=== PATIENT | female | born 1960 | race Caucasian/White ===

== ENCOUNTER → 2024-10-12 11:51 | Outpatient (CLI) | payer BC, SELFPAY ==
[2024-10-12 13:04] LABS: COVID-19 CEPHEID 4-PLEX PCR Negative (Negative); Influenza A - CEPHEID Flu A NEGATIVE (NEGATIVE); Influenza B - CEPHEID Flu B NEGATIVE (NEGATIVE); Respiratory Syncytial Virus Negative (Negative)
== END ==
PROVIDERS: Visit Provider Physician Assistant
DX: R05.1 Acute cough (principal)
CPT/HCPCS: 0241U

== ENCOUNTER → 2024-10-12 12:32 | Outpatient (CLI) | payer BC, SELFPAY ==
--- NOTE | 2024-10-12 12:35 | DI.RAD.S_ITS ---
PROCEDURE: XR CHEST 2V INDICATIONS: cough/wheezing/fever x 4 days, past smoker TECHNIQUE: 2 views of the chest were acquired. COMPARISON: None. FINDINGS: Surgical changes and devices: None. Lungs and pleura: Multifocal opacification of the anterior posterior segments of the lower lobes. No pleural effusions or pneumothorax. Mediastinum: Aortic arch calcifications. Tortuous contour of the aorta. Mediastinal contours are normal. Heart size is normal. Bones and chest wall: No suspicious bony abnormalities. Soft tissues appear unremarkable. IMPRESSION: Bibasilar pneumonia. Consider aspiration as a possible etiology. Dictated by: Osorio Martin M.D. on 10/12/2024 at 13:43 Approved by: Osorio Martin M.D. on 10/12/2024 at 13:44
== END ==
PROVIDERS: Referring Provider Physician Assistant; Visit Provider Physician Assistant
DX: J18.9 Pneumonia, unspecified organism (principal); J06.9 Acute upper respiratory infection, unspecified; R05.1 Acute cough
CPT/HCPCS: 0241U; 71046

== ENCOUNTER → 2025-08-23 12:44 | Outpatient (CLI) | payer OTHER, SELFPAY ==
[2025-08-23 13:08] LABS: Add Manual Diff / Slide Review NO; Hematocrit 42.6 % (36-46); Hemoglobin 14.3 g/dL (12.0-16.0); Lymphocytes Absolute Auto 1400 /uL (1100-4500); Mean Corpuscular HGB Conc 33.6 % (30-36); Mean Corpuscular Hemoglobin 29.3 PG (26-34); Mean Corpuscular Volume 87.1 fL (80-100); Platelet Count 263 X10^3/uL (150-400)
[2025-08-23 13:15] LABS: Hemoglobin A1C% w Est Avg Glu 5.6 % (4.0-6.0)
[2025-08-23 13:27] LABS: Alanine Aminotransferase 24 IU/L (<35); Albumin 4.5 g/dL (3.5-5.0); Albumin Globulin Ratio 1.6 (1.0-2.8); Alkaline Phosphatase 68 U/L (38-126); Blood Urea Nitrogen 15 mg/dL (7-17); Calcium 9.8 mg/dL (8.4-10.2); Carbon Dioxide 22 mmol/L (22-32); Chloride 107 mmol/L (98-107); Cholesterol 220 mg/dL (140-199); Estimated Glomerular Filt Rate > 60 mL/min (>60); Globulin 2.8 g/dL (1.7-4.1); Glucose 112 mg/dL (70-99); HDL Cholesterol 65 mg/dL (40-60); HEMOLYSIS < 15 (0-50); Potassium 4.1 mmol/L (3.4-5.1); Sodium 140 mmol/L (137-145); Total Protein 7.3 g/dL (6.3-8.2); Triglycerides 196 mg/dL (35-150)
[2025-08-23 13:58] LABS: Thyroid Stimulating Hormone 1.26 uIU/mL (0.47-4.68)
== END ==
PROVIDERS: PCP Student in an Organized Health Care Education/Training Program; Referring Provider Student in an Organized Health Care Education/Training Program; Visit Provider Student in an Organized Health Care Education/Training Program
DX: R63.5 Abnormal weight gain (principal)
CPT/HCPCS: 36415; 80053; 80061; 83036; 84443; 85025

== ENCOUNTER → 2025-08-31 12:55 | Outpatient (CLI) | payer OTHER, SELFPAY ==
--- NOTE | 2025-08-31 12:57 | DI.CT.S_ITS ---
PROCEDURE: CT LUNG LOW DOSE SCREENING INDICATIONS: History of tobacco use TECHNIQUE: Noncontrast 2.0-2.5 mm thick sections acquired from the pulmonary apices to the posterior costophrenic angles. 7 mm thick axial MIP, and 5 mm coronal and sagittal reformats were then acquired. For radiation dose reduction, the following was used: automated exposure control, adjustment of mA and/or kV according to patient size. COMPARISON: None. FINDINGS: Image quality: Diagnostic. Lower Neck: No enlarged lymph nodes. Thyroid: No thyroid nodules which require sonographic follow up, per consensus guidelines. Axillae: No enlarged lymph nodes. Chest Wall: Left periscapular lipoma measuring 8.5 x 5.7 cm Bones: Unremarkable. Lungs and Pleura: Trace left pleural effusion versus pleural thickening. No consolidation or significant focal lung parenchymal lesion seen. Heart: Heart size is normal. No pericardial effusion. Thoracic Vessels: The aorta and pulmonary arteries demonstrate normal size. Mediastinum and Nila: No enlarged lymph nodes. Esophagus: No wall thickening. No hiatal hernia. Upper Abdomen: Visualized upper abdomen solid organs and bowel loops appear normal. IMPRESSION: No suspicious pulmonary nodules. LUNG-RADS 1; continued annual screening, if eligible. Clinically Significant Non-pulmonary Findings: None. Dictated by: Fan Mendoza M.D. on 08/31/2025 at 14:53 Approved by: Fan Mendoza M.D. on 08/31/2025 at 14:59
== END ==
PROVIDERS: PCP Student in an Organized Health Care Education/Training Program; Referring Provider Student in an Organized Health Care Education/Training Program; Visit Provider Student in an Organized Health Care Education/Training Program
DX: Z12.2 Encounter for screening for malignant neoplasm of respiratory organs (principal); Z87.891 Personal history of nicotine dependence
CPT/HCPCS: 71271

== ENCOUNTER 2025-10-11 11:27 | Inpatient (IN) | payer OTHER, SELFPAY ==
[2025-10-11] VITALS (20 sets, daily range): BP systolic 113–190; BP diastolic 57–123; PULSE 70–135; RESP 18–36; TEMP 37–37.7; O2SAT 92–98; BMI 36.5
--- NOTE | 2025-10-11 11:53 | DI.RAD.S_ITS ---
PROCEDURE: XR CHEST 1V INDICATIONS: Shortness of breath TECHNIQUE: One view of the chest was acquired. COMPARISON: [facility], CT, CT LUNG LOW DOSE SCREENING, 08/31/2025, 13:17. [facility], CR, XR CHEST 2V, 10/12/2024, 12:49. FINDINGS: Surgical changes and devices: None. Lungs and pleura: Mild horizontal atelectasis or scarring at the left lung base. Mild reticulonodular interstitial prominence. No pleural effusions or pneumothorax. Mediastinum: Tortuous aorta. Heart is within normal limits in size. Bones and chest wall: No suspicious bony lesions. Overlying soft tissues appear unremarkable. IMPRESSION: Mild interstitial prominence may indicate atelectasis versus mild edema or infection with an atypical or viral pneumonia. Approved by: Ruel Valdez M.D. on 10/11/2025 at 13:22
--- NOTE | 2025-10-11 11:53 | EKG_ITS ---
[facility] [address] [place] [address] Test Date: 2025-10-11 Pat Name: Brittany Betanocurt Department: [facility] Room: Gender: Female Cutter Machine: SWEETIE : 1960 Requested By: Order Number: [id number] Reading MD: Abner Lee MD Measurements Intervals [place] Rate: 122 P: OR: QRS: 84 QRSD: 112 T: 236 QT: 354 QTc: 504 Interpretive Statements Atrial fibrillation with rapid ventricular response Anterior infarct , age undetermined ST & T wave abnormality, consider inferior ischemia NO PRIOR TRACING Electronically Signed On 10-11-2025 17:18:37 PST by Abner Lee MD
[2025-10-11 12:15] LABS: Add Manual Diff / Slide Review NO; Hematocrit 41.0 % (36-46); Hemoglobin 13.9 g/dL (12.0-16.0); Lymphocytes Absolute Auto 1100 /uL (1100-4500); Mean Corpuscular HGB Conc 33.8 % (30-36); Mean Corpuscular Hemoglobin 29.2 PG (26-34); Mean Corpuscular Volume 86.3 fL (80-100); Platelet Count 237 X10^3/uL (150-400)
[2025-10-11 12:25] LABS: INR 1.1 (0.9-1.3); Prothrombin Time 12.9 SECONDS (9.4-12.5)
[2025-10-11 12:29] LABS: Alanine Aminotransferase 42 IU/L (<35); Albumin 4.5 g/dL (3.5-5.0); Albumin Globulin Ratio 1.5 (1.0-2.8); Alkaline Phosphatase 60 U/L (38-126); Blood Urea Nitrogen 14 mg/dL (7-17); Calcium 9.5 mg/dL (8.4-10.2); Carbon Dioxide 25 mmol/L (22-32); Chloride 109 mmol/L (98-107); Estimated Glomerular Filt Rate > 60 mL/min (>60); Globulin 3.0 g/dL (1.7-4.1); Glucose 124 mg/dL (70-99); HEMOLYSIS < 15 (0-50); Potassium 3.5 mmol/L (3.4-5.1); Sodium 145 mmol/L (137-145); Total Protein 7.5 g/dL (6.3-8.2)
[2025-10-11 12:30] LABS: Lactate (Lactic Acid) 2.9 mmol/L (0.7-2.1)
[2025-10-11 12:41] LABS: NT-proBNP (BNP-Adult 18+) 3370 pg/mL (<125); Troponin I 0.012 ng/mL (0.01-0.034)
--- NOTE | 2025-10-11 12:51 | PC.NURSE ---
Patient has been out of her blood pressure medication for about a week. She has been short of breathe for a couple weeks and was a seen a week ago and placed on an inhaler, she think spiriva. She states that her breathing was helped a little bit with the inhaler but not much. She is having difficulty speaking in full sentences and become tachypneac in the 30s while trying to speak. Once she stops talking her rate settles in the high teens. She denies any cardiac hx. she has not been able to sleep for a few days and does not feel well. She can't lay flat without trouble breathing.
[2025-10-11] MEDS: FUROSEMIDE 40 MG/4 ML VIAL IV (13:20)
--- NOTE | 2025-10-11 13:44 | EKG_ITS ---
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
[2025-10-11 13:46] LABS: Reflexed Lactate in 2 Hours Y
--- NOTE | 2025-10-11 13:56 | PC.NURSE ---
pt up to use the bathroom. patient and educated on and offered a purewic and then declined purewic.
[2025-10-11 14:23] LABS: Lactate 2HR (Lactic Acid Rflx) 2.6 mmol/L (0.7-2.1)
--- NOTE | 2025-10-11 14:26 | ED_ITS ---
HPI - SOB/Dyspnea General Chief Complaint: Shortness of Breath/Dyspnea Stated Complaint: SOB , hasn't slept in 2 days Time Seen by Provider: 10/11/25 11:39 Source: patient Mode of arrival: Ambulatory Limitations: no limitations History of Present Illness HPI Narrative: 65-year-old female history of hypertension, COPD who presents with a complaint shortness of breath. Patient has had symptoms on and off for several weeks. Patient did note palpitations last night. Patient states recently thought she was having issues with COPD but has been persistent did not respond to albuterol. She does have little bit of chest pressure. She had had shortness of breath. No fevers, no cold cough or congestion. No nausea or vomiting. No syncope. No new swelling in extremities. No other GI or urinary symptoms. Patient states she takes lisinopril but has not taken at about a week. She has not taken any aspirin or anticoagulants. She had has been told she had any cardiac arrhythmias. Has a remote history of ankle surgery for bone spurs. No known drug allergies. Quit smoking 2 years ago, quit alcohol at the same time, occasional audible no other recreational drugs. Dr. Guthrie is her primary care physician. Related Data Previous Rx's ?Medication ?Instructions ?Recorded albuterol sulfate 90 mcg/actuation 2 puff inhalation Q 6H PRN 08/23/25 aerosol inhaler shortness of breath or wheez ing #8.5 grams lisinopril 10 mg tablet 10 mg PO DAILY #90 tabs 08/02 01/23 meloxicam 15 mg tablet 15 mg PO DAILY #30 tabs 08/02 01/23 semaglutide (weight loss) 0.25 0.25 mg (0.5 mL) SUBCUT QWEEK #2 mL 09/13/25 mg/0.5 mL subcutaneous pen injector ondansetron 4 mg disintegrating 4 mg PO Q8H PRN nausea and 09/17/25 tablet vomiting #14 tabs semaglutide 0.25 mg or 0.5 mg (2 0.5 mg (0.736 mL) SUB CUT QWEEK #3 09/17/25 mg/3 mL) subcutaneous pen injector mL tiotropium bromide 18 mcg capsule 1 cap inhalation JD LY #60 caps 10/01/25 with inhalation device (Spiriva with HandiHaler) Allergies Allergy/AdvReac Type Severity Reaction Status Date / Time No Known Drug Allergies Allergy Verified 10/11/25 10:44 Review of Systems Review of Systems ROS Unobtainable: All systems reviewed & are unremarkable except as noted in HPI and below Patient History Medical History Osteoarthritis of right knee Knee pain Social History Smoking Status: Former smoker Smoking Status: Former smoker Exam Narrative Exam Narrative: GENERAL: Alert and oriented x three, female in mild distress. HEENT: Head normocephalic, atraumatic, EOMI, pupils reactive, face symmetric, moist mucous membranes NECK: Supple, full range of motion CARDIOVASCULAR: Tachycardic and irregularly irregular rate and rhythm without murmurs, rubs or gallops. No JVD appreciated. Trace edema bilateral ankles. RESPIRATORY: Breath sounds equal bilaterally, no wheezes rales or rhonchi. Mild tachypnea, no accessory muscle use. Speaks in full sentences. ABDOMEN: Soft, nontender. Normoactive bowel sounds all 4 quadrants. No guarding or rebound, rigidity, no mass : No CVA tenderness EXTREMITIES: Normal range of motion, no clubbing or edema. Neurovascularly intact NEUROLOGICAL: Cranial nerves II through XII grossly intact. Moving all extremities SKIN: Warm, dry, no petechiae, no rashes or lesions. Initial Vital Signs Initial Vital Signs: Vital Signs Temperature 98.6 F 10/11/25 11:47 Pulse Rate 70 10/11/25 11:47 Respiratory Rate 24 10/11/25 11:47 Blood Pressure 141/99 H 10/11/25 11:47 Pulse Oximetry 94 10/11/25 11:47 Oxygen Delivery Method Room Air 10/11/25 11:47 Course Orders Ordered: ED Orders 10/11/25 11:53 XR chest 1V Stat EKG-12 Lead Stat Measure peak expiratory flow STAT RT Consult Eval and Treat STAT 10/11/25 12:05 Complete Blood Count AUTO DIFF Stat Comprehensive Metabolic Panel Stat Lactate (Lactic Acid) Stat NT-proBNP (BNP-Adult 18+) Stat Prothrombin Time INR Stat Troponin I Stat 10/11/25 13:44 EKG-12 Lead Stat Diltiazem HCl 125 mg/ Sodium (Chloride) 125 mls @ 5 mls/hr IV TITRATE CHRISTY; Protocol Last Titration: 10/11/25 14:08 Dose: 10 mg/hr, 10 mls/hr Documented By: Admin: 10/11/25 13:45 Dose: 5 mg/hr, 5 mls/hr Documented By: JAVIER Discontinued Medications Diltiazem HCl (Diltiazem 25 Mg/5 Ml Sdv) 10 mg IV NOW ONE Stop: 10/11/25 13:12 Last Admin: 10/11/25 13:18 Dose: 10 mg Documented By: JAVIER Furosemide (Furosemide 40 Mg/4 Ml Vial) 40 mg IV NOW ONE Stop: 10/11/25 13:12 Last Admin: 10/11/25 13:20 Dose: 40 mg Documented By: JAVIER Vital Signs Vital signs: Vital Signs - 8 hr 10/11/25 11:47 10/11/25 12:37 10/11/25 12:51 Temperature 98.6 F Pulse Rate 70 135 H Respiratory Rate 24 29 H Blood Pressure 141/99 H 175/117 H Pulse Oximetry 94 98 Oxygen Delivery Method Room Air 10/11/25 13:00 10/11/25 13:15 10/11/25 13:15 Temperature Pulse Rate 122 H 120 H Respiratory Rate 27 H 21 Blood Pressure 144/108 H Pulse Oximetry 97 97 Oxygen Delivery Method 10/11/25 13:18 10/11/25 13:30 10/11/25 13:31 Temperature Pulse Rate 130 H 117 H Respiratory Rate 30 H Blood Pressure 144/108 H 173/96 H Pulse Oximetry 96 Oxygen Delivery Method 10/11/25 13:31 10/11/25 13:59 10/11/25 13:59 Temperature Pulse Rate 122 H 123 H Respiratory Rate 35 H 26 H Blood Pressure 177/118 H Pulse Oximetry 96 96 Oxygen Delivery Method 10/11/25 14:00 10/11/25 14:00 10/11/25 14:12 Temperature Pulse Rate 120 H Respiratory Rate 27 H Blood Pressure 190/113 H 190/123 H Pulse Oximetry 97 Oxygen Delivery Method 10/11/25 14:12 10/11/25 14:30 Temperature Pulse Rate 122 H 120 H Respiratory Rate 26 H 36 H Blood Pressure Pulse Oximetry 97 96 Oxygen Delivery Method MDM - SOB/Dyspnea Lab Data 10/11/25 12:05 10/11/25 12:05 Labs: Lab Results 10/11/25 10/11/25 Range/Units 12:05 14:00 WBC 6.7 (4.5-11.0) X10^3/uL RBC 4.74 (4.0-5.2) X10^6/uL Hgb 13.9 (12.0-16.0) g/dL Hct 41.0 (36-46) % MCV 86.3 (80-100) fL MCH 29.2 (26-34) PG MCHC 33.8 (30-36) % RDW 16.0 H (11.6-14.8) % Plt Count 237 (150-400) X10^3/uL Neut % (Auto) 74.0 (50-75) % Lymph % (Auto) 17.1 L (25-40) % Major % (Auto) 7.0 (3-14) % Eos % (Auto) 0.8 L (2-4) % Baso % (Auto) 1.1 (0-2) % Neut # (Auto) 5000 (8724-1295) /uL Lymph # (Auto) 1100 (8524-3723) /uL Major # (Auto) 500 (0-900) /uL Eos # (Auto) 100 (0-450) /uL Baso # (Auto) 100 (0-100) /uL PT 12.9 H (9.4-12.5) SECONDS INR 1.1 (0.9-1.3) Sodium 145 (137-145) mmol/L Potassium 3.5 (3.4-5.1) mmol/L Chloride 109 H (98-107) mmol/L Carbon Dioxide 25 (22-32) mmol/L BUN 14 (7-17) mg/dL Creatinine 0.73 (0.52-1.04) mg/dL Estimated GFR > 60 (>60) mL/min BUN/Creatinine Ratio 19.2 (6-22) Glucose 124 H (70-99) mg/dL Lactate 2.9 H 2.6 H (0.7-2.1) mmol/L Calcium 9.5 (8.4-10.2) mg/dL Total Bilirubin 1.0 (0.2-1.3) mg/dL AST 30 (14-36) IU/L ALT 42 H (<35) IU/L Alkaline Phosphatase 60 (38-126) U/L Troponin I 0.012 (0.01-0.034) ng/mL NT-Pro-B Natriuret Pep 3370 H (<125) pg/mL Total Protein 7.5 (6.3-8.2) g/dL Albumin 4.5 (3.5-5.0) g/dL Globulin 3.0 (1.7-4.1) g/dL Albumin/Globulin Ratio 1.5 (1.0-2.8) ECG Data Attestation: I personally reviewed and interpreted this ECG as follows: Interpretation: AFib with rapid ventricular response rate of 122 QRS of 112, QTC of 504, no acute ST-elevation. Does have some depression possibly in 2 3 AVF. Repeat EKG shows AFib with a RVR rate of 118 QRS of 116 QTC of 437 appears similar to prior from earlier today. MDM Narrative Medical decision making narrative: EKG shows AFib with RVR Labs show normal white count, hemoglobin and platelets, INR is 1.1, chloride 109 electrolytes show a potassium of 3.5, normal creatinine, glucose is 124 lactate is 2.9 with a repeat of 2.6 ALT is 42 troponins 0.012 with a BNP of 3370 no priors for comparison. Chest x-ray shows mild interstitial prominence may indicate atelectasis versus mild edema or infection with atypical or viral pneumonia. Patient received diltiazem 10 mg followed by drip, Lasix. Spoke with the hospitalist for AFib RVR for admission. Patient is slightly had several weeks of symptoms is not anticoagulated does not appear to require emergent cardioversion and without anticoagulation we would not cardiovert otherwise at this time. Spoke with Dr. Rodriguez, hospitalist at 1505 accepts for admission reviewed all the patient's findings she asked if we can start oral metoprolol short-acting 25 mg p.o. Critical Care Time Critical Care Time Critical Care Time: Yes Total Critical Care Time: 35 Attestation: The high probability of a clinically significant, sudden or life threatening deterioration of the [systems] system(s) required my full and direct attention, intervention and personal management. The aggregate critical care time was [--] minutes. This time is in addition to time spent performing reported procedures but includes the following: [x] Data Review and interpretation [x] Patient assessment and monitoring of vital signs [x] Documentation [x] Medication orders and management Discharge Plan Departure Patient Disposition: Admitted As Inpatient Clinical Impression: Atrial fibrillation with rapid ventricular response, CHF (congestive heart failure)
--- NOTE | 2025-10-11 14:33 | PC.NURSE ---
pt still declines the use of pure wic. pt requests to use the bathroom.
[2025-10-11] MEDS: METOPROLOL IR 25 MG TABLET PO ×2 (15:29→20:35)
--- NOTE | 2025-10-11 15:30 | EKG_ITS ---
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
--- NOTE | 2025-10-11 15:52 | PM.HP.1 ---
History of Present Illness History of Present Illness Date Patient Seen: 10/11/25 Time Patient Seen: 15:52 Chief complaint: SOB , hasn't slept in 2 days Narrative: HPI 65-year-old female with a history of hypertension, obesity, bronchitis/reactive airway disease who presents with a several week history of shortness of breath and chest heaviness because it is hard to breathe. Brittany has no history of coronary artery disease or cardiac arrhythmia. She reports that she was seen in clinic and they thought it might be bronchitis/reactive airway disease. She was given Spiriva and albuterol MDI but these meds have not provided any relief. She denies chest pain, lightheadedness or dizziness, palpitations or rapid heart rate, nausea/vomiting. She does feel tired due to a lack of sleep from the shortness of breath. Of note, she started on semaglutide 2 weeks ago. In the emergency room, she was found to have tachycardia and an EKG demonstrated atrial fibrillation with rapid ventricular rate. She was hemodynamically stable full. Emergency room provided diltiazem 10 mg IV x1 and then started a diltiazem drip with improvement in heart rate. At the time my evaluation the patient's heart rate is in the low 80s. She reports feeling better with the resolution of the tachycardia. Most Recent Cardiac Tests: Chest X-Ray Today [facility] Medical History Osteoarthritis of right knee Knee pain Social History Smoking Status: Former smoker Meds Home Medications and Allergies Home Medications ?Medication ?Instructions ?Recorded ?Confirmed ?Type albuterol sulfate 90 mcg/actuation 2 puff inhalation Q6H PRN 08/23/25 10/11/25 Rx aerosol inhaler shortness of breath or wheezing #8.5 grams lisinopril 10 mg tablet 10 mg PO DAILY #90 tabs 08/23/25 10/11/25 Rx meloxicam 15 mg tablet 15 mg PO DAILY #30 tabs 08/23/25 10/11/25 Rx semaglutide (weight loss) 0.25 0.25 mg (0.5 mL) SUBCUT QWEEK #2 mL 09/13/25 10/11/25 Rx mg/0.5 mL subcutaneous pen injector ondansetron 4 mg disintegrating 4 mg PO Q8H PRN nausea and 09/17/25 10/11/25 Rx tablet vomiting #14 tabs semaglutide 0.25 mg or 0.5 mg (2 0.5 mg (0.736 mL) SUBCUT QWEEK #3 09/17/25 10/11/25 Rx mg/3 mL) subcutaneous pen injector mL tiotropium bromide 18 mcg capsule 1 cap inhalation DAILY #60 caps 10/01/25 10/11/25 Rx with inhalation device (Spiriva with HandiHaler) Allergies Allergy/AdvReac Type Severity Reaction Status Date / Time No Known Drug Allergies Allergy Verified 10/11/25 10:44 Review of Systems Review of Systems Narrative: Fourteen system review of systems performed. Pertinent positives and negatives noted in the HPI. Otherwise review of systems is negative. Exam Vital Signs (past 8 hours): - 10/11/25 11:47 10/11/25 12:37 10/11/25 12:51 Temperature 98.6 F Pulse Rate 70 135 H Respiratory Rate 24 29 H Blood Pressure 141/99 H 175/117 H Pulse Oximetry 94 98 Oxygen Delivery Method Room Air 10/11/25 13:00 10/11/25 13:15 10/11/25 13:15 Temperature Pulse Rate 122 H 120 H Respiratory Rate 27 H 21 Blood Pressure 144/108 H Pulse Oximetry 97 97 Oxygen Delivery Method 10/11/25 13:18 10/11/25 13:30 10/11/25 13:31 Temperature Pulse Rate 130 H 117 H Respiratory Rate 30 H Blood Pressure 144/108 H 173/96 H Pulse Oximetry 96 Oxygen Delivery Method 10/11/25 13:31 10/11/25 13:59 10/11/25 13:59 Temperature Pulse Rate 122 H 123 H Respiratory Rate 35 H 26 H Blood Pressure 177/118 H Pulse Oximetry 96 96 Oxygen Delivery Method 10/11/25 14:00 10/11/25 14:00 10/11/25 14:12 Temperature Pulse Rate 120 H Respiratory Rate 27 H Blood Pressure 190/113 H 190/123 H Pulse Oximetry 97 Oxygen Delivery Method 10/11/25 14:12 10/11/25 14:30 Temperature Pulse Rate 122 H 120 H Respiratory Rate 26 H 36 H Blood Pressure Pulse Oximetry 97 96 Oxygen Delivery Method Oxygen Delivery Method Room Air Narrative Exam Narrative: Vitals reviewed Alert and oriented, well nourished, well developed, no acute distress Normocephalic atraumatic, oropharynx moist Irregular rhythm, regular rate, no murmurs Bibasilar rales, otherwise clear to auscultation Soft, non distended Warm with 1+ pedal and ankle edema Neuro exam grossly nonfocal Pleasant cooperative Objective ECG Impression: Reviewed by me demonstrates atrial fibrillation. Initial rate was 122, most recent rate is in the 80s. Imaging Chest x-ray: My impression: Interstitial prominence, likely mild edema secondary to AFib with RVR, less likely atypical/viral pneumonia Radiologist's impression: Mild interstitial prominence may indicate atelectasis versus mild edema or infection with an atypical or viral pneumonia. Labs 10/11/25 12:05 10/11/25 12:05 Labs: Laboratory Results - last 24 hr 10/11/25 10/11/25 12:05 14:00 WBC 6.7 RBC 4.74 Hgb 13.9 Hct 41.0 MCV 86.3 MCH 29.2 MCHC 33.8 RDW 16.0 H Plt Count 237 Neut % (Auto) 74.0 Lymph % (Auto) 17.1 L [place] % (Auto) 7.0 Eos % (Auto) 0.8 L Baso % (Auto) 1.1 Neut # (Auto) 5000 Lymph # (Auto) 1100 [place] # (Auto) 500 Eos # (Auto) 100 Baso # (Auto) 100 PT 12.9 H INR 1.1 Sodium 145 Potassium 3.5 Chloride 109 H Carbon Dioxide 25 BUN 14 Creatinine 0.73 Estimated GFR > 60 BUN/Creatinine Ratio 19.2 Glucose 124 H Lactate 2.9 H 2.6 H Calcium 9.5 Total Bilirubin 1.0 AST 30 ALT 42 H Alkaline Phosphatase 60 Troponin I 0.012 NT-Pro-B Natriuret Pep 3370 H Total Protein 7.5 Albumin 4.5 Globulin 3.0 Albumin/Globulin Ratio 1.5 Assessment & Plan Assessment and plan (1) CHF (congestive heart failure): Qualifiers: Heart failure type: unspecified Heart failure chronicity: acute Qualified Code(s): I50.9 - Heart failure, unspecified Status: Acute (2) Atrial fibrillation with rapid ventricular response: Status: Acute (3) Shortness of breath: Status: Acute (4) Class 3 obesity: Status: Acute (5) Hypertension: Qualifiers: Hypertension type: primary hypertension Qualified Code(s): I10 - Essential (primary) hypertension Status: Acute Assessment & Plan narrative: 65 yo female with HTN, obesity, hx of bronchitis/RAD who presented with several week history of SOB and was found to have atrial fibrillation with RVR. Atrial fibrillation with RVR Initially rate uncontrolled. Was given IV diltiazem 10 mg x 1 and then started on a diltiazem drip which achieved rate control. Patient feels better now with less shortness of breath. Of note, she started semaglutide 2 weeks ago. This medication can cause tachycardia but she was only taking her 1st dose around the time symptoms started so unlikely to be a connection between the medication and the current event. CHADS2 Vasc score is 3. -continued Dilt drip while transitioning to oral medications -metoprolol 25 mg p.o. b.i.d. -echocardiogram -initiation of Eliquis -outpatient cardiology referral Shortness of breath The patient has a history of tobacco use, approximately 1/2 pack per day but discontinued 2 years ago. She does report episodes of bronchitis in the winter that appear to have a reactive airway disease component to them because she is often prescribed albuterol for management of these episodes. The current shortness of breath is likely cardiac in origin from the RVR and not pulmonary in nature. The patient reports that she had no response to her MDI eyes over the last 2 weeks. -hold albuterol and Spiriva for now as shortness of breath seems cardiac Hypertension Currently controlled -continue lisinopril 10 mg daily Obesity -patient can continue semaglutide after discharge Time-Based Coding :: 60 minutes spent with patient and on the chart (including review of chart, obtaining history, exam, reviewing outside data, placing orders, documenting exam and treatment plan, and counseling patient) on [DATE]. Scores CHADS-VASc Congestive heart failure: no Hypertension: yes Age 75 years or older: no Diabetes mellitus: no Stroke, TIA, or TE: no Vascular disease: no Age 65 to 74 years: yes Sex category (female): Female CHADS-VASc Score: 3
--- NOTE | 2025-10-11 16:59 | DI.ECHO.S_ITS ---
[place] [facility] : : [address] : : [place] : : [id number] : : Phone: [phone] Echocardiogram Report + + :Name: TISHA BRYANT Study Date: 10/12/2025 Height: 68 in : :[facility] ReadingLocation: Weight: 240 lb : : Gender: Female BSA: 2.2 m2 : :: 1960 Age: 65 yrs BP: 122/77 mmHg: :Reason For Study: NEW ATRIAL FIBRILLATION : :Ordering Physician: ANUPAMA LOMAS : : Performed By: Rigoberto Lou : :Referring: UNSPECIFIED : + + Interpretation Summary TDS - BODY HABITUS The patient was in normal sinus rhythm during the exam. The patient had frequent PVCs during the exam. Moderately dilated LV. Profound LV dysfunction for The ejection fraction is estimated to be 25-30%. There is severe global hypokinesis of the left ventricle. The right ventricle is mild to moderately dilated. Right ventricular systolic function is moderately reduced. There is moderate to severe mitral regurgitation. Mild to moderate TR Right ventricular systolic pressure is estimated to be 49 mmHg plus the clinically estimated CVP which cannot be estimated on this exam. There is aortic root sclerosis/calcification. Procedure: A two-dimensional transthoracic echocardiogram with color flow and Doppler was performed. A contrast injection of Definity was performed to improve assessment of LV function. The study quality was technically difficult. There is no prior echocardiogram noted for this patient. The patient was in normal sinus rhythm during the exam. The patient had frequent PVCs during the exam. Left Ventricle: There is normal left ventricular wall thickness. The left ventricle is mildly dilated. A false chord is noted (normal variant). There is no thrombus. The ejection fraction is estimated to be 25-30%. There is severe global hypokinesis of the left ventricle. Diastolic function could not be accurately assessed due to unobtainable data. Right Ventricle: The right ventricle is mild to moderately dilated. A calcified moderator band is seen in the right ventricle. Right ventricular systolic function is moderately reduced. Atria: The left atrium is moderately dilated. Right atrial size is normal. The interatrial septum is not well visualized. Mitral Valve: The mitral valve leaflets appear mildly thickened. There is mild mitral annular calcification. There is moderate to severe mitral regurgitation. Aortic Valve: The aortic valve is trileaflet. The aortic valve is mildly calcified. The aortic valve opens well. There is no aortic valve stenosis. No aortic regurgitation is present. Tricuspid Valve: There is tricuspid annular calcification. There is mild to moderate tricuspid regurgitation. Right ventricular systolic pressure is estimated to be 49 mmHg plus the clinically estimated CVP which cannot be estimated on this exam. Pulmonic Valve: The pulmonic valve is not well seen, but is grossly normal. There is trace pulmonic regurgitation. Great Vessels: The aortic root is normal size. There is aortic root sclerosis/calcification. The dimensions of the ascending aorta are normal. The pulmonary artery is normal size. The inferior vena cava was not visualized. Pericardium/ Pleura There is no pericardial effusion. There is an anterior echo-free space consistent with a fat pad. There is no pleural effusion. MMode/2D Measurements & Calculations LVIDd: 6.2 cm LVOT diam: 2.1 cm LVIDs: 5.3 cm Ao root diam: 3.2 cm FS: 14.9 % asc Aorta Diam: 3.6 cm EPSS: 2.2 cm IVSd: 1.0 cm LVPWd: 0.98 cm LV overton. diameter/BSA (cm/m^2): 2.8 LV sys. diameter/BSA (cm/m^2): 2.4 LA A2 area: 21.3 cm2 RA long axis: 4.6 cm LA A4 area: 24.1 cm2 RA area: 17.8 cm2 LA length (vol): 6.5 cm RA vol: 58.6 ml LA vol: 66.9 ml RA : 26.6 ml/m2 LA vol index: 30.3 ml/m2 RVD1 (basal): 5.1 cm RVD2 (mid): 2.8 cm TAPSE: 1.5 cm Doppler Measurements & Calculations Ao V2 max: 125.4 cm/sec LVOT Max Wayne: 92.3 cm/sec Ao V2 mean: 93.1 cm/sec LV V1 max P.4 mmHg Ao max P.3 mmHg LV V1 VTI: 14.2 cm Ao mean P.8 mmHg SURJIT(I,D): 2.3 cm2 Ao V2 VTI: 20.9 cm SURJIT(V,D): 2.5 cm2 sev ratio: 0.68 SURJIT indexed to BSA (cm^2/m^2): 1.1 MV E max wayne: 94.3 cm/sec TR max wayne: 349.4 cm/sec MV A max wayne: 29.4 cm/sec TR max P.8 mmHg MV E/A: 3.2 PA V2 max: 94.5 cm/sec Med Peak E' Wayne: 4.6 cm/sec PA V2 mean: 60.9 cm/sec E/E' med: 20.3 PA mean P.7 mmHg Lat Peak E' Wayne: 2.8 cm/sec PA pr(Accel): 53.3 mmHg E/E' lat: 33.4 E/e' average: 26.9 MV dec time: 0.18 sec SV(LVOT): 48.7 ml Reading Physician:05:22 PM
--- NOTE | 2025-10-11 17:07 | PC.ADMIT ---
[email or web address] Admission Note: Pt arrived to room 229 from the ED at approximately 1550. A&Ox4, ambulatory. NSR HR 60's with PVCs, BP elevated at 150/101. Denies pain, denies SOB, oriented to room and call light. Diltiazem drip continues to infuse from ED, 5mg/hr. Care ongoing. The patient,Brittany Betancourt,65 y/o, was given written information regarding hospital policies, unit procedures and contact persons. Patient's smoking status: Former smoker. Vital Signs - 8 hr 10/11/25 11:47 10/11/25 12:37 10/11/25 12:51 Temperature 98.6 F Pulse Rate 70 135 H Respiratory Rate 24 29 H Blood Pressure 141/99 H 175/117 H Pulse Oximetry 94 98 Oxygen Delivery Method Room Air 10/11/25 13:00 10/11/25 13:15 10/11/25 13:15 Temperature Pulse Rate 122 H 120 H Respiratory Rate 27 H 21 Blood Pressure 144/108 H Pulse Oximetry 97 97 Oxygen Delivery Method 10/11/25 13:18 10/11/25 13:30 10/11/25 13:31 Temperature Pulse Rate 130 H 117 H Respiratory Rate 30 H Blood Pressure 144/108 H 173/96 H Pulse Oximetry 96 Oxygen Delivery Method 10/11/25 13:31 10/11/25 13:59 10/11/25 13:59 Temperature Pulse Rate 122 H 123 H Respiratory Rate 35 H 26 H Blood Pressure 177/118 H Pulse Oximetry 96 96 Oxygen Delivery Method 10/11/25 14:00 10/11/25 14:00 10/11/25 14:12 Temperature Pulse Rate 120 H Respiratory Rate 27 H Blood Pressure 190/113 H 190/123 H Pulse Oximetry 97 Oxygen Delivery Method 10/11/25 14:12 10/11/25 14:30 Temperature Pulse Rate 122 H 120 H Respiratory Rate 26 H 36 H Blood Pressure Pulse Oximetry 97 96 Oxygen Delivery Method
[2025-10-11] MEDS: INFLUENZA HD VACCINE 0.5 ML SYRINGE IM (18:34)
[2025-10-11 19:47] LABS: MRSA (Nasal) PCR NOT DETECTED (Not Detect)
[2025-10-11] MEDS: APIXABAN 5 MG TABLET PO (20:35)
[2025-10-12] VITALS (8 sets, daily range): BP systolic 116–169; BP diastolic 76–88; PULSE 74–103; RESP 16–22; TEMP 36.6–37.2; O2SAT 95–99
[2025-10-12 05:02] LABS: Blood Urea Nitrogen 17 mg/dL (7-17); Calcium 9.4 mg/dL (8.4-10.2); Carbon Dioxide 26 mmol/L (22-32); Chloride 106 mmol/L (98-107); Estimated Glomerular Filt Rate > 60 mL/min (>60); Glucose 116 mg/dL (70-99); HEMOLYSIS < 15 (0-50); Magnesium 2.2 mg/dL (1.6-2.3); Potassium 3.4 mmol/L (3.4-5.1); Sodium 141 mmol/L (137-145)
[2025-10-12 05:54] LABS: Free T4, Direct Thyroxine 1.68 ng/dL (0.78-2.19)
[2025-10-12 06:08] LABS: Thyroid Stimulating Hormone 1.49 uIU/mL (0.47-4.68)
--- NOTE | 2025-10-12 06:36 | PC.NURSE ---
Furs Salesperson Note-Patient has remained in SR with frequent PVCs. Denies chest pain, did have one episode of dyspnea after ambulating to BR, resolved at rest. 2L O2 put on, sats > 98%.
--- NOTE | 2025-10-12 08:34 | PC.NURSE ---
[id number] received this pt resting and has had a long night with little actual sleep; appears to be sleeping; discussed care with KIKI Cope; will allow pt to rest longer. Called pharmacy about K+3.4; will follow their orders. 0800 pt roused to RN presence in room; pt agreed to have BP assessed and has allowed RN to assess pt head to toe; pt did state that she needed to get to restroom to void; RN noted steady gait; RN noted that hat needed repositioning to catch voids; teaching about I/O needs done with pt; pt is pleasant; has denied pain; appeared slightly SOB after walking to restroom and back to bed. Call light is in reach; pt is alert and oriented; can state needs clearly.
[2025-10-12] MEDS: APIXABAN 5 MG TABLET PO ×2 (08:54→20:52)
[2025-10-12] MEDS: METOPROLOL IR 25 MG TABLET PO ×2 (08:56→20:52)
[2025-10-12] MEDS: POTASSIUM CHLORIDE 20 MEQ TAB 40 MEQ PO (08:56)
--- NOTE | 2025-10-12 10:45 | PC.NURSE ---
[id number] pt is resting after her meal; has no pain; using cell phone as desired; will try to nap as pt reports extreme fatigue with recent issues from heart and breathing. RN supporting pt's napping and is monitoring for all changes.
--- NOTE | 2025-10-12 13:47 | PC.NURSE ---
[id number] pt able to eat and tolerate and eat her lunch; MD did rounds as noted. Pt wanted RN To speak on phone with her daughter and give pt's daughter an update; RN did speak with daughter and pt was present; update provided; daughter was updated of sinus rhythm; clear lungs; plans for Echo as ordered; Lab - k+3.4 and oral replacement. Pt will follow her family with Echo results for later.
--- NOTE | 2025-10-12 13:56 | PC.NURSE ---
pt mentioned some mild transient nausea, but declined any interventions; then pt reported that she felt well and was eating her lunch, tolerating it well. Will follow for all changes.
--- NOTE | 2025-10-12 15:13 | CM.DANOTE ---
Initial DCP Assessment Visit Note Reviewed EMR and team rounds for pt's medical status and updates. Met with pt to introduce self and role, pt was found to be alert/oriented, resting quietly in bed, in no acute distress. Pt resides independently with her spouse in thier own home here in [place]. Her spouse will transport her home once she's medically cleared for home d/c, anticipated later this evening if her ECHO is normal. No CM d/c assistance or resource needs are identified at this time. Payor: Cayden Freitas PCP: Dr. Guthrie Pt is a 65 year-old F with a hx of HTN and COPD. She presented to the ED last evening with c/o SOB, heart palpitations, and mild chest pressure that has been happening off and on for the last several weeks. The EKG in the ED did show Afib with RVR. Pt was started on Diltiazam, Lasix, and metaprolol, and admitted to OBS for further cardiac monitoring and ECHO. No further needs are identified for assistance. Discharge Planning/Care Management CM Discharge Assessment Start: 10/11/25 16:57 Freq: Status: Active Protocol: Document 10/12/25 15:09 DPL (Rec: 10/12/25 15:12 DPL [id number]) Discharge Planning Assessment Assigned Discharge AMANDA [place] Hand Provider Dr. Guthrie Insurance [employer] Advance Directives? No History Provided By Patient,Medical Record Has Patient been No admitted in last 30 days? Prior Living House Arrangements Household Members spouse Type of Drives own vehicle transporation used prior to admit Independent with ADL Yes 's Is patient alert and Yes oriented? Comment N/A Caregiver for No Another DME Already Rented / Bath Bench,Elevated Toilet Seat,FWW / Walker Owned Comment No AD at baseline, but does have a walker from a previous surgery at home. Patient/Family [facility] Facility Preference Discharge Plan [facility] Facility Referrals Initiated [facility] If patient plan is No SNF: Has PASSR been completed? Inpatient Status as 10/11/25 of Medicare Choice List Yes Provided Medicare choice list patient reviewed on electronic tablet with SNF/HH Preference [facility] Has Agency SNF been No contacted Whiteboard Updated Yes in Patient Room with name and ext. # of Rfid Developer Review Status In Process Please Provide Date 10/12/25 Initial DC Assessment Was Performed
--- NOTE | 2025-10-12 17:32 | PC.NURSE ---
1700 pt care with ECHO at bedside done; pt will have cardiology care team read results from ECHO and pt's plan of care will be followed by this. Pt is aware; spouse is aware.
--- NOTE | 2025-10-12 18:30 | P.PN_ITS ---
Subjective Subjective Interval history: Subjective 65-year-old female with a history of hypertension, obesity, bronchitis/reactive airway disease who presents with a several week history of shortness of breath and chest heaviness because it is hard to breathe. Brittany has no history of coronary artery disease or cardiac arrhythmia. She reports that she was seen in clinic and they thought it might be bronchitis/reactive airway disease. She was given Spiriva and albuterol MDI but these meds have not provided any relief. She denies chest pain, lightheadedness or dizziness, palpitations or rapid heart rate, nausea/vomiting. She does feel tired due to a lack of sleep from the shortness of breath. Of note, she started on semaglutide 2 weeks ago. In the emergency room, she was found to have tachycardia and an EKG demonstrated atrial fibrillation with rapid ventricular rate. She was hemodynamically stable full. Emergency room provided diltiazem 10 mg IV x1 and then started a diltiazem drip with improvement in heart rate. At the time my evaluation the patient's heart rate is in the low 80s. She reports feeling better with the resolution of the tachycardia. Objective Vitals reviewed Alert and oriented, well nourished, well developed, no acute distress Normocephalic atraumatic, oropharynx moist Irregular rhythm, regular rate, no murmurs Bibasilar rales, otherwise clear to auscultation Soft, non distended Warm with 1+ pedal and ankle edema Neuro exam grossly nonfocal Pleasant cooperative Labs: BMP unremarkable Imaging: Chest x-ray with mild interstitial prominence. Echocardiogram with EF 25-30%, profound LV dysfunction, severe global hypokinesis of the LV, mild to moderate dilated RV with moderately reduced RV systolic function, moderate to severe MR. A&P 65 yo female with HTN, obesity, hx of bronchitis/RAD who presented with several week history of SOB and was found to have atrial fibrillation with RVR. Atrial fibrillation with RVR Initially rate uncontrolled. Was given IV diltiazem 10 mg x 1 and then started on a diltiazem drip which achieved rate control. Patient feels better now with some improvement in shortness of breath. Of note, she started semaglutide 2 weeks ago. This medication can cause tachycardia but she was only taking her 1st dose around the time symptoms started so unlikely to be a connection between the medication and the current event. CHADS2 Vasc score is 3. -metoprolol 25 mg p.o. b.i.d -lisinopril 10mg daily -continue eliquis Acute systolic congestive heart failure, new diagnosis Cardiomyopathy, EF 25-30%, new diagnosis HTN, suboptimal control Echo shows profound cardiac dysfunction in a patient patient with no history of coronary artery disease. It is unclear how long the patient has been in AFib with RVR so a component of the cardiomyopathy may be rate related. However, coronary artery disease needs to be ruled out. -continue metoprolol 25 mg b.i.d. -continue lisinopril 10 mg daily-can titrate up as needed for blood pressure control -initiate spironolactone and titrate as tolerated -continue Eliquis - Discussed with Dr. Coughlin who will consult tomorrow as patient will need a cardiac catheterization to assess for coronary artery disease Shortness of breath The patient has a history of tobacco use, approximately 1/2 pack per day but discontinued 2 years ago. She does report episodes of bronchitis in the winter that appear to have a reactive airway disease component to them because she is often prescribed albuterol for management of these episodes. The current shortness of breath is likely cardiac in origin from the RVR/cardiomyopathy and not pulmonary in nature. The patient reports that she had no response to her MDIs over the last 2 weeks. -hold albuterol and Spiriva for now as shortness of breath seems cardiac Exam Vital Signs (past 8 hours): - 10/12/25 10:43 10/12/25 13:00 10/12/25 17:00 Temperature 98.5 F 98.9 F Pulse Rate 76 Oxygen Delivery Method Room Air Oxygen Delivery Method Room Air Oxygen Flow Rate 2 Objective Labs 10/11/25 12:05 10/12/25 03:52 Labs: Laboratory Results - last 24 hr 10/11/25 10/12/25 17:00 03:52 Sodium 141 Potassium 3.4 Chloride 106 Carbon Dioxide 26 BUN 17 Creatinine 0.73 Estimated GFR > 60 BUN/Creatinine Ratio 23.3 H Glucose 116 H Calcium 9.4 Magnesium 2.2 TSH 1.49 Free T4 1.68 Nasal Screen MRSA (PCR) Not detected [facility] Medical History Osteoarthritis of right knee Knee pain Social History household members: spouse Smoking Status: Former smoker alcohol intake: current Assessment & Plan Time-Based Coding :: [TOTAL MINUTES] spent with patient and on the chart (including review of chart, obtaining history, exam, reviewing outside data, placing orders, documenting exam and treatment plan, and counseling patient) on [DATE].
[2025-10-12 20:31] LABS: Hematocrit 41.5 % (36-46); Hemoglobin 13.8 g/dL (12.0-16.0); Mean Corpuscular HGB Conc 33.2 % (30-36); Mean Corpuscular Hemoglobin 28.6 PG (26-34); Mean Corpuscular Volume 86.2 fL (80-100); Platelet Count 226 X10^3/uL (150-400)
[2025-10-12 20:44] LABS: Blood Urea Nitrogen 17 mg/dL (7-17); Calcium 9.5 mg/dL (8.4-10.2); Carbon Dioxide 28 mmol/L (22-32); Chloride 105 mmol/L (98-107); Estimated Glomerular Filt Rate > 60 mL/min (>60); Glucose 101 mg/dL (70-99); HEMOLYSIS < 15 (0-50); Magnesium 2.3 mg/dL (1.6-2.3); Potassium 3.8 mmol/L (3.4-5.1); Sodium 142 mmol/L (137-145)
[2025-10-12] MEDS: SPIRONOLACTONE 25 MG TABLET PO (20:53)
[2025-10-13] VITALS (13 sets, daily range): BP systolic 95–154; BP diastolic 60–89; PULSE 68–102; RESP 16–19; TEMP 36.6–37; O2SAT 86–97
--- NOTE | 2025-10-13 07:46 | PM.PN.1 ---
Subjective Subjective Interval history: Subjective 65-year-old female with a history of hypertension, obesity, bronchitis/reactive airway disease who presents with a several week history of shortness of breath and chest heaviness. She feels the chest heaviness is related to her difficulty breathing. Brittany has no history of coronary artery disease or cardiac arrhythmia. She reports that she was seen in clinic and they thought it might be bronchitis/reactive airway disease. She was given Spiriva and albuterol MDI but these meds have not provided any relief. She denies sharp chest pain, lightheadedness or dizziness, palpitations or rapid heart rate, nausea/vomiting. She does feel tired due to a lack of sleep from the shortness of breath. Of note, she started on semaglutide 2 weeks ago. In the emergency room, she was found to have tachycardia and an EKG demonstrated atrial fibrillation with rapid ventricular rate. She was hemodynamically stable full. Emergency room provided diltiazem 10 mg IV x1 and then started a diltiazem drip with improvement in heart rate. At the time my evaluation the patient's heart rate is in the low 80s. She reports feeling better with the resolution of the tachycardia. Overall, the patient reports that her shortness of breath is improving but she is still unable to lie on her back or right side. She is only comfortable breathing if she is on her left side. She continues to feel tired but otherwise review of systems is negative Objective Vitals reviewed Alert and oriented, well nourished, well developed, no acute distress Normocephalic atraumatic, oropharynx moist Regular rate and rhythm, no murmurs Bibasilar rales, otherwise clear to auscultation Soft, non distended Warm with 1+ nonpitting pedal and ankle edema Neuro exam grossly nonfocal Pleasant cooperative Labs: CBC and BMP notable only for borderline blood glucose in the 101-124 range Imaging: Chest x-ray from 10/11 with mild interstitial prominence. Echocardiogram: EF 25-30%, profound LV dysfunction, severe global hypokinesis of the LV, mild to moderate dilated RV with moderately reduced RV systolic function, moderate to severe MR. A&P 65 yo female with HTN, obesity, hx of bronchitis/RAD who presented with several week history of SOB and was found to have new onset atrial fibrillation with RVR. Inpatient evaluation has demonstrated cardiomyopathy with EF of 25-30%. Atrial fibrillation with RVR, new onset, now resolved Initially rate uncontrolled. Was given IV diltiazem 10 mg x 1 and then started on a diltiazem drip which achieved rate control. Patient spontaneously converted to normal sinus rhythm once rate control was achieved. Patient feels better now with some improvement in shortness of breath. Of note, she started semaglutide 2 weeks ago. This medication can cause tachycardia but she took her 1st dose around the time symptoms started so unlikely to be a connection between the medication and the current event. In addition, I can not find any reports of semaglutide causing atrial fibrillation. The AFib is likely related to her newly diagnosed cardiomyopathy. CHADS2 Vasc score is 3. -continue metoprolol 25 mg p.o. b.i.d -continue Eliquis Acute systolic congestive heart failure, new diagnosis Cardiomyopathy, EF 25-30%, new diagnosis HTN, suboptimal control Echo shows profound cardiac dysfunction in a patient patient with no history of coronary artery disease. It is unclear how long the patient has been in AFib with RVR so a component of the cardiomyopathy may be rate related. However, coronary artery disease needs to be ruled out. The patient does not consume alcohol and she reports no recent viral infection so doubt alcohol-induced her viral induced cardiomyopathy. -continue metoprolol 25 mg b.i.d. -increase lisinopril from 10 mg to 20 mg daily-can continue to titrate for adequate BP control -continue spironolactone which was initiated on 10/12 - Discussed with Dr. Raman who will consult today and arrange for cardiac catheterization to assess for CAD Shortness of breath The patient has a history of tobacco use, approximately 1/2 pack per day but discontinued 2 years ago. She does report episodes of bronchitis in the winter that appear to have a reactive airway disease component to them because she is often prescribed albuterol for management of these episodes. The current shortness of breath is likely cardiac in origin from the RVR/cardiomyopathy and not pulmonary in nature. The patient reports that she had no response to her MDIs over the last 2 weeks. -hold albuterol and Spiriva for now as shortness of breath seems cardiac Exam Vital Signs (past 8 hours): - 10/13/25 00:35 10/13/25 01:00 10/13/25 01:13 Temperature 97.8 F Pulse Rate 70 Respiratory Rate 19 Blood Pressure 143/67 H Pulse Oximetry 97 93 93 Oxygen Flow Rate 0 10/13/25 02:27 10/13/25 03:11 10/13/25 05:55 Temperature Pulse Rate Respiratory Rate Blood Pressure Pulse Oximetry 93 86 L 87 L Oxygen Flow Rate Oxygen Delivery Method Room Air Oxygen Flow Rate 0 Objective Labs 10/12/25 20:24 10/12/25 20:24 Labs: Laboratory Results - last 24 hr 10/12/25 20:24 WBC 6.4 RBC 4.81 Hgb 13.8 Hct 41.5 MCV 86.2 MCH 28.6 MCHC 33.2 RDW 16.8 H Plt Count 226 Sodium 142 Potassium 3.8 Chloride 105 Carbon Dioxide 28 BUN 17 Creatinine 0.77 Estimated GFR > 60 BUN/Creatinine Ratio 22.1 H Glucose 101 H Calcium 9.5 Magnesium 2.3 PFSH Medical History Osteoarthritis of right knee Knee pain Social History household members: spouse Smoking Status: Former smoker alcohol intake: current Assessment & Plan Time-Based Coding :: [TOTAL MINUTES] spent with patient and on the chart (including review of chart, obtaining history, exam, reviewing outside data, placing orders, documenting exam and treatment plan, and counseling patient) on [DATE].
[2025-10-13] MEDS: APIXABAN 5 MG TABLET PO ×2 (08:38→21:11)
[2025-10-13] MEDS: SPIRONOLACTONE 25 MG TABLET PO (08:38)
[2025-10-13] MEDS: METOPROLOL IR 25 MG TABLET PO (08:38)
[2025-10-13] MEDS: FUROSEMIDE 40 MG/4 ML VIAL IV ×2 (08:43→17:07)
[2025-10-13] MEDS: POTASSIUM CHLORIDE 20 MEQ TAB PO (09:51)
--- NOTE | 2025-10-13 11:19 | P.DS_ITS ---
History of Present Illness History of Present Illness Chief complaint: SOB , hasn't slept in 2 days Narrative: HPI 65-year-old female with a history of hypertension, obesity, bronchitis/reactive airway disease who presents with a several week history of shortness of breath and chest heaviness because it is hard to breathe. Brittany has no history of coronary artery disease or cardiac arrhythmia. She reports that she was seen in clinic and they thought it might be bronchitis/reactive airway disease. She was given Spiriva and albuterol MDI but these meds have not provided any relief. She denies chest pain, lightheadedness or dizziness, palpitations or rapid heart rate, nausea/vomiting. She does feel tired due to a lack of sleep from the shortness of breath. Of note, she started on semaglutide 2 weeks ago. In the emergency room, she was found to have tachycardia and an EKG demonstrated atrial fibrillation with rapid ventricular rate. She was hemodynamically stable full. Emergency room provided diltiazem 10 mg IV x1 and then started a diltiazem drip with improvement in heart rate. She spontaneously converted to normal sinus rhythm once rate control was achieved. Objective Vitals reviewed Alert and oriented, well nourished, well developed, no acute distress Normocephalic atraumatic, oropharynx moist Regular rate and rhythm, no murmurs Bibasilar rales, otherwise clear to auscultation Soft, non distended Warm with 1+ nonpitting pedal and ankle edema Neuro exam grossly nonfocal Pleasant cooperative Labs: CBC and BMP notable only for borderline blood glucose in the 101-124 range Imaging: Chest x-ray from 10/11 with mild interstitial prominence. Echocardiogram: EF 25-30%, profound LV dysfunction, severe global hypokinesis of the LV, mild to moderate dilated RV with moderately reduced RV systolic function, moderate to severe MR. A&P 65 yo female with HTN, obesity, hx of bronchitis/RAD who presented with several week history of SOB and was found to have new onset atrial fibrillation with RVR. Inpatient evaluation has demonstrated cardiomyopathy with EF of 25-30%. Atrial fibrillation with RVR, new onset, now resolved Initially rate uncontrolled. Was given IV diltiazem 10 mg x 1 and then started on a diltiazem drip which achieved rate control. Patient spontaneously converted to normal sinus rhythm once rate control was achieved. Patient feels better now with some improvement in shortness of breath. Of note, she started semaglutide 2 weeks ago. This medication can cause tachycardia but she took her 1st dose around the time symptoms started so unlikely to be a connection between the medication and the current event. In addition, I can not find any reports of semaglutide causing atrial fibrillation. The AFib is likely related to her newly diagnosed cardiomyopathy. CHADS2 Vasc score is 3. She will discharge on metoprolol 25 mg p.o. b.i.d. and Eliquis 5 mg p.o. b.i.d. Acute systolic congestive heart failure, new diagnosis Cardiomyopathy, EF 25-30%, new diagnosis HTN, suboptimal control Echo shows profound cardiac dysfunction in a patient patient with no history of coronary artery disease. It is unclear how long the patient has been in AFib with RVR so a component of the cardiomyopathy may be rate related. However, coronary artery disease needs to be ruled out. The patient does not consume alcohol and she reports no recent viral infection so doubt alcohol-induced her viral induced cardiomyopathy. She will discharge on goal-directed medical therapy including metoprolol 25 mg b.i.d., lisinopril 20 mg daily, spironolactone 25 mg daily and Lasix 20 mg daily. We will not discharge on potassium supplementation given that she is taking lisinopril and spironolactone. Dr. Raman will see the patient prior to discharge and enter a full consult. He will arrange for her to have an outpatient cardiac catheterization this week at [facility]. Shortness of breath The patient has a history of tobacco use, approximately 1/2 pack per day but discontinued 2 years ago. She does report episodes of bronchitis in the winter that appear to have a reactive airway disease component to them because she is often prescribed albuterol for management of these episodes. The current shortness of breath is likely cardiac in origin from the RVR/cardiomyopathy and not pulmonary in nature. The patient reports that she had no response to her MDIs over the last 2 weeks. She did not require an MDI or nebulizer while hospitalized. Time: Greater than 30 minutes spent in the patient evaluation, discharge coordination, and documentation. Discharge Providers Provider Date of admission: 10/11/25 16:03 Discharge Date: 10/13/25 Primary care physician: Gabi Guthrie MD Consults: Cardiology, Dr. Tong Raman Discharge provider: Estefanía Rodriguez MD Exam Vital Signs (past 8 hours): - 10/13/25 05:55 10/13/25 08:30 10/13/25 08:37 Temperature Pulse Rate 74 Respiratory Rate Blood Pressure 127/89 Pulse Oximetry 87 L Oxygen Delivery Method Room Air Oxygen Flow Rate 10/13/25 09:00 Temperature 97.8 F Pulse Rate 76 Respiratory Rate 16 Blood Pressure 127/89 Pulse Oximetry 95 Oxygen Delivery Method Oxygen Flow Rate 0 Oxygen Delivery Method Room Air Oxygen Flow Rate 0 Objective Labs 10/12/25 20:24 10/12/25 20:24 Labs: Laboratory Results - last 24 hr 10/12/25 20:24 WBC 6.4 RBC 4.81 Hgb 13.8 Hct 41.5 MCV 86.2 MCH 28.6 MCHC 33.2 RDW 16.8 H Plt Count 226 Sodium 142 Potassium 3.8 Chloride 105 Carbon Dioxide 28 BUN 17 Creatinine 0.77 Estimated GFR > 60 BUN/Creatinine Ratio 22.1 H Glucose 101 H Calcium 9.5 Magnesium 2.3 PFSH Medical History Osteoarthritis of right knee Knee pain Social History household members: spouse Smoking Status: Former smoker alcohol intake: current Discharge Plan Discharge Plan Patient Disposition: Home Discharge orders & Medications Prescriptions: New Eliquis 5 mg Tablet 5 mg PO BID Qty: 60 0RF furosemide [Lasix] 20 mg tablet 20 mg PO DAILY Qty: 30 0RF metoprolol succinate [Toprol XL] 50 mg tablet extended release 24 hr 50 mg PO DAILY Qty: 30 0RF lisinopril 10 mg Tablet 20 mg PO DAILY Qty: 30 0RF spironolactone 25 mg Tablet 25 mg PO DAILY Qty: 30 0RF aspirin 81 mg capsule 81 mg PO DAILY Qty: 90 0RF Continued albuterol sulfate 90 mcg/actuation HFA aerosol inhaler 2 puff inhalation Q6H PRN (Reason: shortness of breath or wheezing) Qty: 8.5 3RF ondansetron 4 mg tablet,disintegrating 4 mg PO Q8H PRN (Reason: nausea and vomiting) Qty: 14 0RF semaglutide 0.25 mg or 0.5 mg (2 mg/3 mL) pen injector 0.5 mg SUBCUT QWEEK Qty: 3 0RF tiotropium bromide [Spiriva with HandiHaler] 18 mcg capsule, w/inhalation device 1 cap inhalation DAILY Qty: 60 0RF Rx Instructions: puncture 1 cap using device; one dose = 2 inhalations semaglutide (weight loss) 0.25 mg/0.5 mL pen injector 0.25 mg SUBCUT QWEEK Qty: 2 0RF Rx Instructions: administer weeks 1 through 4 of therapy, Med ok to compound with Vit B12 for nausea, at risk for deficiency due to dietary changes from medication Discontinued lisinopril 10 mg tablet 10 mg PO DAILY Qty: 90 3RF meloxicam 15 mg tablet 15 mg PO DAILY Qty: 30 3RF Follow up/Referrals: Gabi Guthrie MD [Primary Care Provider, [facility]] Discharge Health Status Care Plan Goals: 1. Follow-up with your primary care provider within 1 week 2. Follow-up with cardiology as directed by them 3. Do not take meloxicam due to the aspirin and Eliquis that you need for your heart. Taking all 3 medications will increase your risk of bleeding. Multidrug resistant organism: No MDRO Diet/Activity/Treatments Diet: Low-sodium Activity: As tolerated Visit Report/Discharge Packet Stand Alone Forms: Congestive Heart Failure, Patient Portal/API Discharge Data Primary Care Provider: Gabi Guthrie Attending Provider: Estefanía Rodriguez Date/Time: 10/11/25 16:03
--- NOTE | 2025-10-13 12:08 | DI.ECHO.S_ITS ---
[facility] : : [address] : : [place] : : [id number] : : Phone: [phone] Echocardiogram Report + + :Name: TISHA BRYANT Study Date: 10/14/2025 Height: 68 in : :[facility] ReadingLocation: Weight: 257 lb : : Gender: Female BSA: 2.3 m2 : :: 1960 Age: 65 yrs BP: 110/65 mmHg: :Reason For Study: CONGESTIVE HEART FAILURE : :Ordering Physician: ASHOK, : :CATHERINE Performed By: Rigoberto Lou : :Referring: CATHERINE PULIDO : + + Interpretation Summary The ejection fraction is estimated to be 30-35%. Left ventricular systolic function has slightly improved compared to the previous exam. The left ventricle is mildly dilated. Procedure: A two-dimensional transthoracic echocardiogram was performed in limited views only to assess EF. A contrast injection of Definity was performed to improve assessment of LV function. The study quality was technically difficult. Comparison is made with the echocardiogram of 10/12/2025. The heart rate ranged between 67-89 bpm during the study. Left Ventricle: The left ventricle is mildly dilated. There is normal left ventricular wall thickness. The ejection fraction is estimated to be 30-35%. Left ventricular systolic function has slightly improved compared to the previous exam. Mitral Valve: There is trace mitral regurgitation. Tricuspid Valve: There is a trace or physiologic amount of tricuspid regurgitation. Great Vessels: The IVC is of normal diameter and collapses greater than 50% with a sniff. This suggests a low right atrial pressure of 3 mm Hg. MMode/2D Measurements & Calculations LVIDd: 6.1 cm LVIDs: 4.7 cm FS: 23.4 % IVSd: 0.97 cm LVPWd: 0.86 cm LV overton. diameter/BSA (cm/m^2): 2.7 LV sys. diameter/BSA (cm/m^2): 2.1 Reading Physician:12:34 PM
--- NOTE | 2025-10-13 12:11 | PC.NURSE ---
4806 DR PULIDO AT BEDSIDE HAVING LENGTHY DISCUSSION ON PLAN OF CARE WITH PATIENT/ DAUGHTER. DAUGHTER EXPRESSING CONCERN FOR PT DISCHARGE. SHORT WALK TEST PERFORMED IN HALLWAY PER MD REQUEST. O2 REMAINED >96% AND HEART RATE UP TO 91 BEATS PER MINUTE. PT VERY FATIGUED/ SOB AFTER WALK. PER DR PULIDO, PLAN TO KEEP PATIENT ONE MORE DAY AND REPEAT ECHO ON 10/14.
--- NOTE | 2025-10-13 12:15 | PM.CN ---
History of Present Illness Consult details Date Patient Seen: 10/13/25 Time Patient Seen: 12:15 Chief complaint: SOB , hasn't slept in 2 days Narrative: 65-year-old female his past medical history of hypertension, intermittent snoring obesity admitted to the hospital symptoms of respiratory distress exertional shortness of breath orthopnea PND weight gain for last 2-3 weeks. She also reported episodes of intermittent tachy palpitations and was not able to do oridnary activities of dailyliving. She also reported intermittent cough with respiratory distress and choking. She did not felt good and came to the hospital and was found to be in atrial fibrillation with rapid ventricular rate. She was in respiratory distress. IV diltiazem drip was started patient was started on anticoagulants. An echocardiogram was performed which revealed severe systolic dysfunction with ejection fraction of 25-30%. There was moderate to severe mitral regurgitation there was right ventricular dilatation. I was called by the hospitalist on service to evaluate this patient for management of new onset heart failure. Given her ejection fraction of less than 35% patient carried a risk of sudden cardiac therefore discussion about sudden cardiac prevention was made. To address some of these issues I came in personally evaluate this patient. Meds Home Medications and Allergies Home Medications ?Medication ?Instructions ?Recorded ?Confirmed ?Type albuterol sulfate 90 mcg/actuation 2 puff inhalation Q6H PRN 08/23/25 10/11/25 Rx aerosol inhaler shortness of breath or wheezing #8.5 grams semaglutide (weight loss) 0.25 0.25 mg (0.5 mL) SUBCUT QWEEK #2 mL 09/13/25 10/11/25 Rx mg/0.5 mL subcutaneous pen injector ondansetron 4 mg disintegrating 4 mg PO Q8H PRN nausea and 09/17/25 10/11/25 Rx tablet vomiting #14 tabs semaglutide 0.25 mg or 0.5 mg (2 0.5 mg (0.736 mL) SUBCUT QWEEK #3 09/17/25 10/11/25 Rx mg/3 mL) subcutaneous pen injector mL tiotropium bromide 18 mcg capsule 1 cap inhalation DAILY #60 caps 10/01/25 10/11/25 Rx with inhalation device (Spiriva with HandiHaler) apixaban 5 mg tablet (Eliquis) 5 mg PO BID #60 tabs 10/13/25 Rx aspirin 81 mg capsule 81 mg PO DAILY #90 caps 10/13/25 Rx furosemide 20 mg tablet (Lasix) 20 mg PO DAILY #30 tabs 10/13/25 Rx lisinopril 10 mg tablet 20 mg (2 x 10 mg) PO DAILY #30 tabs 10/13/25 Rx metoprolol succinate 50 mg 50 mg PO DAILY #30 tabs 10/13/25 Rx tablet,extended release 24 hr (Toprol XL) spironolactone 25 mg tablet 25 mg PO DAILY #30 tabs 10/13/25 Rx Allergies Allergy/AdvReac Type Severity Reaction Status Date / Time No Known Drug Allergies Allergy Verified 10/11/25 10:44 Review of Systems Review of Systems ROS: Yes All systems reviewed with the patient and are negative except as otherwise documented Cardiovascular Cardiovascular: Reports leg edema, Reports dyspnea, Reports dyspnea on exertion, Reports orthopnea and Reports paroxysmal nocturnal dyspnea Comments: pt was not able to sleep for Respiratory Respiratory: Reports chest congestion, Reports cough, Reports pain on inspiration, Reports dyspnea and Reports dyspnea on exertion Exam Vital Signs (past 8 hours): - 10/13/25 05:55 10/13/25 08:30 10/13/25 08:37 Temperature Pulse Rate 74 Respiratory Rate Blood Pressure 127/89 Pulse Oximetry 87 L Oxygen Delivery Method Room Air Oxygen Flow Rate 10/13/25 09:00 Temperature 97.8 F Pulse Rate 76 Respiratory Rate 16 Blood Pressure 127/89 Pulse Oximetry 95 Oxygen Delivery Method Oxygen Flow Rate 0 Oxygen Delivery Method Room Air Oxygen Flow Rate 0 Const General: cooperative, healthy appearing and well developed [facility] Head: normal to inspection Eyes General: appearance normal, both eyes and all related structures Neck Neck: normal visual inspection Carotids: normal carotid upstroke Other: JVD is elevated on 45degree bed position Chest Chest: normal inspection of the chest Resp Effort & Inspection: normal respiratory effort Cardio Rate: regular rate Rhythm: regular rhythm Heart Sounds: S1 normal and S2 normal Other: Heart sounds are distant. GI Auscultation: normal bowel sounds Skin General: no rashes or lesions noted Other: Trace to 1+ pedal edema. Objective Labs 10/12/25 20:24 10/12/25 20:24 Labs: Laboratory Results - last 24 hr 10/12/25 20:24 WBC 6.4 RBC 4.81 Hgb 13.8 Hct 41.5 MCV 86.2 MCH 28.6 MCHC 33.2 RDW 16.8 H Plt Count 226 Sodium 142 Potassium 3.8 Chloride 105 Carbon Dioxide 28 BUN 17 Creatinine 0.77 Estimated GFR > 60 BUN/Creatinine Ratio 22.1 H Glucose 101 H Calcium 9.5 Magnesium 2.3 PFSH Medical History Osteoarthritis of right knee Knee pain Social History household members: spouse Tobacco & Substance Use Smoking Status: Former smoker alcohol intake: current Diet and Exercise during the past year weight has: remained stable Additional Social History additional social history: Former smoker, Does not exercise. Assessment & Plan Assessment and plan (1) Atrial fibrillation with rapid ventricular response: Status: Acute (2) Acute systolic heart failure: Status: Acute (3) Mitral regurgitation: Qualifiers: Cardiac valve disease etiology: etiology unspecified Qualified Code(s): I34.0 - Nonrheumatic mitral (valve) insufficiency Status: Acute (4) Hypertension: Qualifiers: Hypertension type: primary hypertension Qualified Code(s): I10 - Essential (primary) hypertension Status: Acute Plan Metoprolol succinate 50 mg twice daily Apixaban 5 mg twice daily Repeat limited echo to assess for ejection fraction prior to her discharge. If her ejection fraction is still than 35% consideration for LifeVest. We will schedule her for transesophageal echocardiogram and complete heart catheterization as an outpatient. My office will coordinate her care. Total time spent 70min. Assessment & Plan narrative: Atrial with rapid ventricular rate. She presented to the hospital with atrial fibrillation rapid ventricular rate. She was started on diltiazem drip and she spontaneously converted to sinus rhythm. Since admission she has maintained sinus rhythm and rate is controlled with the beta blockers. She was started anticoagulants apixaban 5 mg twice daily. The etiology of atrial fibrillation is unknown at this point how her CHADS-VASc score is more than 2. Acute systolic heart failure: Patient presented with atrial fibrillation with a rapid ventricular rate. Routine echocardiogram revealed ejection fraction of 25%. Etiology includes ischemic cardiomyopathy, nonischemic cardiomyopathy, tachycardia induced cardiomyopathy, mitral regurgitation with secondary heart failure. She was started on beta blockers MAX inhibitors and diuretics. Symptoms of orthopnea help significantly and improved however she continues to have bilateral basal crackles. A hallway walk test was performed and she maintained her heart rate and oxygen saturations today. Her input-output is negative now with diuretics on board. She still has some degree of difficulty shortness of breath with ordinary activity and walk in the hallway. BNP 3370 Further diagnostic workup is indicated as she would need a transesophageal echocardiogram to was steady her underlying mitral valve disease as a primary cause of her acute systolic heart failure. In addition will have to schedule her for complete heart catheterization at at the in his solution for complete diagnostic workup. Given her ejection fraction below 35% there is a risk of sudden cardiac . She is maintaining sinus rhythm for last Hypertension.: Patient reports that she has a history of hypertension but was not compliant with her medications. Hyperlipidemia: Patient was not on any medications. Snoring: Patient has a history of snoring but has never been worked up for it. Class 3 obesity. This should be addressed in conjunction with other clinical issues. I will send a note to her PCP. Time-Based Coding :: [TOTAL MINUTES] spent with patient and on the chart (including review of chart, obtaining history, exam, reviewing outside data, placing orders, documenting exam and treatment plan, and counseling patient) on [DATE].
--- NOTE | 2025-10-13 12:25 | CM.DPC ---
DCP Cont: Per Operations Research Director Consult and discussion bedside with pt and Dtr they completed walking test and O2 sats stable but increased heart rate and plan to keep pt overnight and do repeat Echo tomorrow as pt has EF less 35%. Discharge orders to be cancelled for today and hopeful d/c home with Dtr tomorrow Supriya. AMANDA Martínez
[2025-10-13] MEDS: METOPROLOL ER 50 MG TABLET PO (18:36)
[2025-10-13] MEDS: ACETAMINOPHEN 325 MG TABLET 650 MG PO (18:37)
[2025-10-14] VITALS: BP 108/62; PULSE 85; RESP 20; TEMP 36.6; O2SAT 93
[2025-10-14 04:00] VITALS: BP 110/65; PULSE 65; RESP 20; TEMP 36.7; O2SAT 92
[2025-10-14] MEDS: FUROSEMIDE 40 MG/4 ML VIAL IV (05:05)
[2025-10-14 08:00] VITALS: BP 110/63; PULSE 62; RESP 16; TEMP 36.3; O2SAT 92
[2025-10-14 08:57] LABS: Add Manual Diff / Slide Review NO; Hematocrit 44.5 % (36-46); Hemoglobin 15.1 g/dL (12.0-16.0); Lymphocytes Absolute Auto 1100 /uL (1100-4500); Mean Corpuscular HGB Conc 33.8 % (30-36); Mean Corpuscular Hemoglobin 28.9 PG (26-34); Mean Corpuscular Volume 85.3 fL (80-100); Platelet Count 219 X10^3/uL (150-400)
[2025-10-14 09:05] LABS: Blood Urea Nitrogen 18 mg/dL (7-17); Calcium 9.3 mg/dL (8.4-10.2); Carbon Dioxide 27 mmol/L (22-32); Chloride 102 mmol/L (98-107); Estimated Glomerular Filt Rate > 60 mL/min (>60); Glucose 114 mg/dL (70-99); HEMOLYSIS 20 (0-50); Magnesium 2.3 mg/dL (1.6-2.3); Potassium 3.5 mmol/L (3.4-5.1); Sodium 142 mmol/L (137-145)
[2025-10-14 10:03] VITALS: BP 110/63; PULSE 82
[2025-10-14] MEDS: METOPROLOL ER 50 MG TABLET PO (10:03)
[2025-10-14] MEDS: SPIRONOLACTONE 25 MG TABLET PO (10:04)
[2025-10-14] MEDS: APIXABAN 5 MG TABLET PO (10:04)
[2025-10-14 10:33] VITALS: BP 92/53; PULSE 74
[2025-10-14 12:00] VITALS: BP 97/62; PULSE 65; RESP 16; TEMP 36.5; O2SAT 95
[2025-10-14] MEDS: POTASSIUM CHLORIDE 20 MEQ TAB 40 MEQ PO (13:18)
--- NOTE | 2025-10-14 14:30 | PM.DS.1 ---
History of Present Illness History of Present Illness Chief complaint: SOB , hasn't slept in 2 days Narrative: HPI 65-year-old female with a history of hypertension, obesity, bronchitis/reactive airway disease who presents with a several week history of shortness of breath and chest heaviness because it is hard to breathe. Brittany has no history of coronary artery disease or cardiac arrhythmia. She reports that she was seen in clinic and they thought it might be bronchitis/reactive airway disease. She was given Spiriva and albuterol MDI but these meds have not provided any relief. She denies chest pain, lightheadedness or dizziness, palpitations or rapid heart rate, nausea/vomiting. She does feel tired due to a lack of sleep from the shortness of breath. Of note, she started on semaglutide 2 weeks ago. In the emergency room, she was found to have tachycardia and an EKG demonstrated atrial fibrillation with rapid ventricular rate. She was hemodynamically stable full. Emergency room provided diltiazem 10 mg IV x1 and then started a diltiazem drip with improvement in heart rate. She spontaneously converted to normal sinus rhythm once rate control was achieved. Objective Vitals reviewed Alert and oriented, well nourished, well developed, no acute distress Normocephalic atraumatic, oropharynx moist Regular rate and rhythm, no murmurs Bibasilar rales, otherwise clear to auscultation Soft, non distended Warm with 1+ nonpitting pedal and ankle edema Neuro exam grossly nonfocal Pleasant cooperative Labs: CBC and BMP notable only for borderline blood glucose in the 101-124 range Imaging: Chest x-ray from 10/11 with mild interstitial prominence. Echocardiogram: EF 25-30%, profound LV dysfunction, severe global hypokinesis of the LV, mild to moderate dilated RV with moderately reduced RV systolic function, moderate to severe MR. A&P 65 yo female with HTN, obesity, hx of bronchitis/RAD who presented with several week history of SOB and was found to have new onset atrial fibrillation with RVR. Inpatient evaluation has demonstrated cardiomyopathy with EF of 25-30%. Atrial fibrillation with RVR, new onset, now resolved Initially rate uncontrolled. Was given IV diltiazem 10 mg x 1 and then started on a diltiazem drip which achieved rate control. Patient spontaneously converted to normal sinus rhythm once rate control was achieved. Patient feels better now with some improvement in shortness of breath. Of note, she started semaglutide 2 weeks ago. This medication can cause tachycardia but she took her 1st dose around the time symptoms started so unlikely to be a connection between the medication and the current event. In addition, I can not find any reports of semaglutide causing atrial fibrillation. The AFib is likely related to her newly diagnosed cardiomyopathy. CHADS2 Vasc score is 3. She will discharge on metoprolol 25 mg p.o. b.i.d. and Eliquis 5 mg p.o. b.i.d. Acute systolic congestive heart failure, new diagnosis Cardiomyopathy, EF 25-30%, new diagnosis HTN, suboptimal control Echo shows profound cardiac dysfunction in a patient patient with no history of coronary artery disease. It is unclear how long the patient has been in AFib with RVR so a component of the cardiomyopathy may be rate related. However, coronary artery disease needs to be ruled out. The patient does not consume alcohol and she reports no recent viral infection so doubt alcohol-induced her viral induced cardiomyopathy. She will discharge on goal-directed medical therapy including metoprolol 25 mg b.i.d., lisinopril 20 mg daily, spironolactone 25 mg daily and Lasix 20 mg daily. We will not discharge on potassium supplementation given that she is taking lisinopril and spironolactone. Dr. Raman will see the patient prior to discharge and enter a full consult. He will arrange for her to have an outpatient cardiac catheterization this week at [facility]. Shortness of breath The patient has a history of tobacco use, approximately 1/2 pack per day but discontinued 2 years ago. She does report episodes of bronchitis in the winter that appear to have a reactive airway disease component to them because she is often prescribed albuterol for management of these episodes. The current shortness of breath is likely cardiac in origin from the RVR/cardiomyopathy and not pulmonary in nature. The patient reports that she had no response to her MDIs over the last 2 weeks. She did not require an MDI or nebulizer while hospitalized. Addendum Patient was scheduled to discharge on 10/13 but cardiology wanted to hold the patient one more night to repeat the echocardiogram. Echo repeated and shows slight improvment in EF to 30-35%. On the evening of 10/13, the patient had a return episode of afib with RVR requiring IV pain meds. Time: Greater than 30 minutes spent in the patient evaluation, discharge coordination, and documentation. Discharge Providers Provider Date of admission: 10/11/25 16:03 Discharge Date: 10/13/25 Primary care physician: Gabi Guthrie MD Discharge provider: Estefanía Rodriguez MD Exam Vital Signs (past 8 hours): - 10/14/25 08:00 10/14/25 10:03 10/14/25 10:03 Temperature 97.4 F L Pulse Rate 62 82 Respiratory Rate 16 Blood Pressure 110/63 110/63 110/63 Pulse Oximetry 92 Oxygen Flow Rate 0 10/14/25 10:33 10/14/25 12:00 Temperature 97.7 F Pulse Rate 74 65 Respiratory Rate 16 Blood Pressure 92/53 L 97/62 Pulse Oximetry 95 Oxygen Flow Rate 0 Oxygen Delivery Method Room Air Oxygen Flow Rate 0 Objective Labs 10/14/25 08:45 10/14/25 08:45 Labs: Laboratory Results - last 24 hr 10/14/25 08:45 WBC 4.6 RBC 5.22 H Hgb 15.1 Hct 44.5 MCV 85.3 MCH 28.9 MCHC 33.8 RDW 16.2 H Plt Count 219 Neut % (Auto) 63.4 Lymph % (Auto) 22.8 L [place] % (Auto) 8.0 Eos % (Auto) 4.2 H Baso % (Auto) 1.6 Neut # (Auto) 2900 Lymph # (Auto) 1100 [place] # (Auto) 400 Eos # (Auto) 200 Baso # (Auto) 100 Sodium 142 Potassium 3.5 Chloride 102 Carbon Dioxide 27 BUN 18 H Creatinine 0.74 Estimated GFR > 60 BUN/Creatinine Ratio 24.3 H Glucose 114 H Calcium 9.3 Magnesium 2.3 PFSH Medical History Osteoarthritis of right knee Knee pain Social History household members: spouse Smoking Status: Former smoker alcohol intake: current during the past year weight has: remained stable additional social history: Former smoker, Does not exercise. Discharge Plan Discharge Plan Patient Disposition: Home Discharge orders & Medications Prescriptions: New spironolactone 25 mg Tablet 25 mg PO DAILY Qty: 30 0RF lisinopril 10 mg Tablet 20 mg PO DAILY Qty: 30 0RF Eliquis 5 mg Tablet 5 mg PO BID Qty: 60 0RF furosemide [Lasix] 20 mg tablet 20 mg PO DAILY Qty: 30 0RF aspirin 81 mg capsule 81 mg PO DAILY Qty: 90 0RF metoprolol succinate [Toprol XL] 50 mg tablet extended release 24 hr 50 mg PO DAILY Qty: 30 0RF Continued albuterol sulfate 90 mcg/actuation HFA aerosol inhaler 2 puff inhalation Q6H PRN (Reason: shortness of breath or wheezing) Qty: 8.5 3RF ondansetron 4 mg tablet,disintegrating 4 mg PO Q8H PRN (Reason: nausea and vomiting) Qty: 14 0RF semaglutide 0.25 mg or 0.5 mg (2 mg/3 mL) pen injector 0.5 mg SUBCUT QWEEK Qty: 3 0RF tiotropium bromide [Spiriva with HandiHaler] 18 mcg capsule, w/inhalation device 1 cap inhalation DAILY Qty: 60 0RF Rx Instructions: puncture 1 cap using device; one dose = 2 inhalations semaglutide (weight loss) 0.25 mg/0.5 mL pen injector 0.25 mg SUBCUT QWEEK Qty: 2 0RF Rx Instructions: administer weeks 1 through 4 of therapy, Med ok to compound with Vit B12 for nausea, at risk for deficiency due to dietary changes from medication Discontinued lisinopril 10 mg tablet 10 mg PO DAILY Qty: 90 3RF meloxicam 15 mg tablet 15 mg PO DAILY Qty: 30 3RF Follow up/Referrals: Gabi Guthrie MD [Primary Care Provider, [facility]] Discharge Health Status Care Plan Goals: 1. Follow-up with your primary care provider within 1 week 2. Follow-up with cardiology as directed by them 3. Do not take meloxicam due to the aspirin and Eliquis that you need for your heart. Taking all 3 medications will increase your risk of bleeding. Multidrug resistant organism: No MDRO Diet/Activity/Treatments Diet: Low-sodium Activity: As tolerated Visit Report/Discharge Packet Stand Alone Forms: Congestive Heart Failure, Patient Portal/API Discharge Data Primary Care Provider: Gabi Guthrie Attending Provider: Estefanía Rodriguez Admit Date/Time: 10/11/25 16:03
--- NOTE | 2025-10-14 16:47 | PC.NURSE ---
Discharge: Pt agreeable to discharge plan. IV and tele d/c'ed. Pt dressed self. Medication instructions and education provided to pt. HF and afib education provided to pt. Followup appt already scheduled with PCP, cardiology to call tomorrow, Wednesday. Pt wheeled via w/c to cab at approximately 1640 with PCT.
== END 2025-10-14 16:40 | disposition home or self-care (01) | DRG 291 ==
LOC: ED 15:07 → ICU 16:25
PROVIDERS: Internal Medicine Cardiovascular Disease; Admitting Provider Internal Medicine Infectious Disease; Emergency Provider Emergency Medicine; PCP Student in an Organized Health Care Education/Training Program; Visit Provider Internal Medicine Infectious Disease
DX: I11.0 Hypertensive heart disease with heart failure (principal); I50.21 Acute systolic (congestive) heart failure; I48.91 Unspecified atrial fibrillation; R00.0 Tachycardia, unspecified; E66.813 Obesity, class 3; I42.9 Cardiomyopathy, unspecified; I34.0 Nonrheumatic mitral (valve) insufficiency; Z79.85 Long-term (current) use of injectable non-insulin antidiabetic drugs; Z87.891 Personal history of nicotine dependence; Z68.39 Body mass index [BMI] 39.0-39.9, adult; Z87.09 Personal history of other diseases of the respiratory system
CPT/HCPCS: 36415; 71045; 80048; 80053; 83605; 83735; 83880; 84439; 84443; 84484; 85025; 85027; 85610; 87797; 90471; 90662; 93005; 93306; 93307; 96365; 96366; 96375; 99284; 99291; G0378; J1938; J7050; Q9957